=== PATIENT | female | born 1985 | race American Indian/Alaskan Native ===

== ENCOUNTER 2017-09-24 22:02 | Emergency (ER) | payer BC, OTHER ==
[2017-09-24 22:24] VITALS: BMI 35.5
[2017-09-24 22:50] VITALS: TEMP 98.4
[2017-09-24 22:54] LABS: SQUAMOUS EPITHIAL 6 /hpf (0-5); URINE BACTERIA RARE (<OCC); URINE BILIRUBIN NEGATIVE (NEGATIVE); URINE BLOOD NEGATIVE (NEGATIVE); URINE CLARITY SLIGHTY-CLOUDY (Clear); URINE COLOR YELLOW (YELLOW); URINE GLUCOSE (UA) NEG (Normal); URINE LEUKOCYTE ESTERASE NEG Leu/uL (Negative); URINE PROTEIN NEGATIVE (NEGATIVE); URINE UROBILINOGEN 0.2-1.0 mg/dL (0.2-1.0)
--- NOTE | 2017-09-24 23:45 | US ---
Clinical history: Pelvic pain; Additional info: , abdo pain Gender: female Age: 32 years Exam: US TRANSVAGINAL NON-OB Comparison: Cervical length was measured at 3.9-4.4 CM.
[2017-09-24 23:50] LABS: SPECIMEN COMMENT CLOUDY
--- NOTE | 2017-09-25 09:04 | OBHP ---
Datetime: 09/24/2017 22:31 IP Adm Impression: , intrauterine ; No Active Labor; Intact Membranes IP Admit Plan: Observation/Evaluation Admit Comment, IP Provider: This is 32 y/o F, , IUP@ 26.5, ARIEL 12/26 and GEO C/S on 12/19 comes to the [facility] c/o lower back and abdominal pain. Pain started at 8 pm in the evening all the sudden, come s and goes, crampy in nature, 6-7/10 severity associated with nausea and dizziness. last tylenol at 4 pm as per patient. No sexual intercourse in last 3 days Denies any LOF/BV/CTX, reports good FM Denies chest pain, SOB or urinary symptoms at this time PNC: Dr. Ryder OBhx: , 2 x misscar, 1 C/S due to abnormal FHT, 2x ABS PMH: Scoliosis PSH: Allg: NKDA Meds: PNV + Tylenol PRN SH: Denies FH: Denies VS: Reviewed PE: as above A/P: 32 y/o F, , IUP@ 26.5, ARIEL 12/26 and GEO C/S on 12/19 comes to the [facility] c/o lower back and abdominal pain - Pelvic exam - UA - Tylenol - Monitor VS/NST -FFN - Reevaluation - Possible u/s Case discussed with Dr. Johnson --- Mario Leavitt, PGY-1 UA: negative T/V u/S: Cervical length 4.1 FFN: negative Reevaluation: Pain has improved Agrees with dischsrge plan Appt OB next weeks Discussed with Dr. Johnson --- Mario Leavitt, PGY-1 OB Hospitalist on-call Pt star barba examined with PGY1...workup UA, FFn neg; CLM 4cm. She felt better after Tylenol. Lasha chu discahrge home; follow up as scheduled MAHNDO Extremities - PN: Normal Back - PN: Normal Lungs - PN: Normal Heart - PN: Normal Thyroid - PN: Normal Neurologic - PN: Normal HEENT - PN: Normal General - PN: Normal FHR - Baseline A Provider: 130 Membranes, Provider: Intact Comments, ACOG Physical Exam: mild acute distressed due to pain PE: supera pubic tenderness and mild lower back tenderness Cervical length 4.1 on TV U/S PE: wnl, closed cervix, high and thick FFn negative (Annotations: Data stored by CPN on behalf of user) Pool Provider: Negative IP Hx Assessment: The History has been Reviewed and is Current EGA AdmitDate IP: 26.5 Vital Signs Provider: Reviewed; Within Normal Limits IP Chief Complaint: Maternal discomfort NICHD Variability Prov Fetus A: Moderate 6-25bpm NICHD Accel Fetus A IP Provider: 10X10 FHR Category Provider Fetus A: Category I NICHD Decel Fetus A IP Provider: None Dilatation, Provider: close
--- NOTE | 2017-09-25 09:06 | OBDCSUM ---
Datetime: 09/24/2017 23:56 Discharged to, Provider: Home Follow up at, Provider: Domenico Disch Instr Activity: Normal activity Disch Instr Diet: Regular Discharge Instructions, Provider: Routine instructions given Discharge Diagnosis, Provider: False Labor - Undelivered Discharge Time: 09/24/2017 23:56 Follow up in weeks, Provider: 10/14/17 @ 9:15 am as scheduled Disch Referrals: None Contraception discussed, Prov: Yes Disch Activity Restrictions: No sexual activity; Nothing in vagina - [place], tampons, douche
[2017-09-25 19:02] VITALS: BP 134/76; PULSE 88; RESP 21; O2SAT 100
== END 2017-09-25 00:10 | disposition home or self-care (01) ==
LOC: H.EROB2 22:02
DX: O26.92 Pregnancy related conditions, unspecified, second trimester (principal); M54.5 Low back pain; R10.2 Pelvic and perineal pain; Z3A.27 27 weeks gestation of pregnancy

== ENCOUNTER 2017-10-30 12:42 | Emergency (ER) | payer BC, OTHER ==
[2017-10-30 13:05] VITALS: BMI 37.1
[2017-10-30] MEDS ORDERED: Lactated Ringer's 500 ML IV SCH (13:45)
[2017-10-30 13:57] LABS: BASO % 0.4 % (0.0-2.0); EOS % 0.2 % (0.0-4.0); HEMOGLOBIN 13.8 g/dL (12.0-16.0); LYMPH # 0.8 K/uL (1.0-4.3); LYMPH % 10.9 % (20.0-40.0); MEAN CELL VOLUME 91.2 fl (81.0-99.0); MEAN CORPUSCULAR HEMOGLOBIN 30.2 pg (27.0-31.0); MEAN CORPUSCULAR HGB CONC 33.1 g/dL (33.0-37.0); MEAN PLATELET VOLUME 9.3 fl (7.2-11.7); MONO # 0.4 K/uL (0.0-0.8); MONO % 5.7 % (0.0-10.0); NEUT # 5.9 K/uL (1.8-7.0); NEUT % 82.8 % (50.0-75.0); NRBC % 0.2 % (0.0-0.0); RBC 4.57 Mil/uL (3.80-5.20); RED CELL DISTRIBUTION WIDTH 13.9 % (11.5-14.5); WHITE BLOOD COUNT 7.1 K/uL (4.8-10.8)
[2017-10-30] MEDS ORDERED: Lactated Ringer's 1,000 ML IV SCH (14:01)
[2017-10-30 14:06] LABS: ALBUMIN 3.9 g/dL (3.5-5.0); CALCIUM 9.1 mg/dL (8.4-10.2); GFR AFRICAN-AMERICAN > 60; GFR NON-AFRICAN AMERICAN > 60
[2017-10-30 14:13] LABS: SQUAMOUS EPITHIAL 1 /hpf (0-5); URINE AMORPHOUS SEDIMENT RARE /ul (<OCC); URINE BILIRUBIN NEGATIVE (NEGATIVE); URINE BLOOD MODERATE (NEGATIVE); URINE CLARITY CLOUDY (Clear); URINE COLOR YELLOW (YELLOW); URINE GLUCOSE (UA) NEG (Normal); URINE LEUKOCYTE ESTERASE NEG Leu/uL (Negative); URINE PROTEIN 30 mg/dL (NEGATIVE)
[2017-10-30 14:14] LABS: ALT/SGPT 39 U/L (9-52); AST/SGOT 33 U/L (14-36); BLOOD UREA NITROGEN 10 mg/dl (7-17)
--- NOTE | 2017-10-30 17:53 | OBHP ---
Datetime: 10/30/2017 13:36 IP Adm Impression: , intrauterine ; No Active Labor IP Admit Plan: Observation/Evaluation; Discharge home Admit Comment, IP Provider: 32 y/o F, , IUP@ 36.6wks ARIEL 12/26 and GEO C/S on 12/19 comes to the [facility] c/o lower back and abdominal pain with vomiting that started last night around 8 pm intermittent, crampy in nature, 6-7/10 severity associated with nausea, vomiting and weakness. Last vomit when arr ived to [facility]. Denies any LOF/BV/CTX, reports good FM Denies chest pain, SOB or headaches. PNC: Dr. Ryder OBhx: , 2 x misscar, 1 C/S due to abnormal FHT, 2x ABS PMH: Scoliosis PSH: Allg: NKDA Meds: PNV + Tylenol PRN SH: Denies FH: Denies VS: Reviewed PE: as above Cervix closed A/P: 32 y/o F, IUP@ 36.6, ARIEL 12/26 c/o lower back and abdominal pain associated vomiting x1 d ay. - Observation - Pelvic exam - UA - cbc, cmp - Zofran 4 mg once - IV fluids - Monitor VS - Reevaluation Case discussed with Dr Stevens. Trey PGY-1 Reeval time 14:23 Patient feels better CBC and CMP wnl. UA negative for UTI. - Start PO challenge with ice chips. 1500: patient feels better, tolerating well PO. Dicharge home. f/u with primary OB. ER precautions discussed. Trey PGY. Attending Note: Patient was seen and examined at her bedside with me and I agree with the above. Pelvic Type - PN: Adequate Extremities - PN: Normal Abdomen - PN: Normal Back - PN: Normal Breast - PN: Not Done Lungs - PN: Normal Heart - PN: Normal Thyroid - PN: Not Done Neurologic - PN: Normal HEENT - PN: Normal General - PN: Normal FHR - Baseline A Provider: 150 Membranes, Provider: Intact Contraction Comments Provider: none EGA AdmitDate IP: 31.6 Vital Signs Provider: Reviewed IP Chief Complaint: Maternal discomfort; Other NICHD Variability Prov Fetus A: Moderate 6-25bpm NICHD Accel Fetus A IP Provider: 15X15 FHR Category Provider Fetus A: Category I NICHD Decel Fetus A IP Provider: None Dilatation, Provider: 0 Effacement, Provider: thick Station, Provider: high Genitourinary Exam: Not Done DTRs - PN: Not Done
[2017-10-30 22:03] VITALS: BP 138/65; PULSE 106; TEMP 99; O2SAT 98
== END 2017-10-30 16:55 | disposition home or self-care (01) ==
LOC: H.EROB2 12:42
DX: O21.0 Mild hyperemesis gravidarum (principal); O26.93 Pregnancy related conditions, unspecified, third trimester; M54.5 Low back pain; Z3A.36 36 weeks gestation of pregnancy; Z87.59 Personal history of other complications of pregnancy, childbirth and the puerperium; R10.2 Pelvic and perineal pain
CPT/HCPCS: 80053; 81003; 85025; 96374; 99283; J2405; J7120

== ENCOUNTER 2017-12-09 19:42 | Emergency (ER) | payer BC, OTHER ==
[2017-12-09 20:36] VITALS: BMI 38.7
[2017-12-09] MEDS: Lactated Ringer's 1,000 ML IV SCH ×2 (20:53→21:30)
[2017-12-09 21:04] LABS: SQUAMOUS EPITHIAL 11 /hpf (0-5); URINE BACTERIA RARE (<OCC); URINE BILIRUBIN NEGATIVE (NEGATIVE); URINE BLOOD MODERATE (NEGATIVE); URINE CALCIUM OXALATE CRYSTALS FEW /hpf (<OCC); URINE CLARITY CLOUDY (Clear); URINE COLOR YELLOW (YELLOW); URINE GLUCOSE (UA) NEG (Normal); URINE LEUKOCYTE ESTERASE NEG Leu/uL (Negative); URINE PROTEIN NEGATIVE (NEGATIVE); URINE UROBILINOGEN 0.2-1.0 mg/dL (0.2-1.0)
--- NOTE | 2017-12-09 22:52 | OBHP ---
Datetime: 12/09/2017 20:13 IP Adm Impression: Term, intrauterine Admit Comment, IP Provider: LMP: could not recall PNP: Dr. Ryder 32 y/o at 37 wks _ 5 days with ARIEL 12/26/17 is c/o suprapubic pain since 5pm. She reports p ain is cramping _ sharp, 8-9/10 in nature and has been getting worse. She has felt movement wit hin past 5 minutes, _ denied vaginal bleeding, loss of fluid or any recent sexual activity. Patient has scheduled for 12/20/2017. OBGYNhx: 1 , 2006, M 2 scheduled abortions 2 miscarriages ( patient couldn't recall dates) PMH: none Sochx: no tobacco, EtOH or drugs Surghx: none Allergies: none ROS: denies dizziness, headache, blurred vision, cp, sob,n/v/d PE: Gen: obese female, flinching Cardio: s1s2 ausculated Resp: clear b/l Abd: BS+ Vag: cervix closed, thick Ext: calves nontender A/P: 32 y/o at 37 wks _ 5 days with ARIEL 12/26/17 1. Patient placed FHR monitoring ; 2.Will do UA, IV hydration with 1L of LR (2 bags), _ observe. Case discussed with Dr. Britni Ramirez PGY-1 Addendum: Patient observed at OB ED for approximately 3 hours. Patient reexamined and no cervical change. No evidence of labor at this time. heart tracing reactive. Discussed options with patient, patien t discharged home with labor precautions. Patient scheduled for repeat in 3 days. Patient w ill return to and delivery for repeat as scheduled. Britni Extremities - PN: Normal Lungs - PN: Normal Heart - PN: Normal General - PN: Normal Pool Provider: Negative EGA AdmitDate IP: 37.4 Vital Signs Provider: Reviewed IP Chief Complaint: Maternal discomfort (Annotations: Data stored by CPN on behalf of user) Dilatation, Provider: 0 Effacement, Provider: 0
[2017-12-10 08:27] VITALS: BP 142/80; PULSE 71; RESP 20; TEMP 98.9; O2SAT 99
== END 2017-12-09 22:45 | disposition home or self-care (01) ==
LOC: H.EROB2 19:42
DX: O26.93 Pregnancy related conditions, unspecified, third trimester (principal); R10.2 Pelvic and perineal pain; Z3A.37 37 weeks gestation of pregnancy
CPT/HCPCS: 81003; 96360; 96361; 99283; J7120

== ENCOUNTER 2017-12-19 15:13 | Inpatient (IN) | payer OTHER ==
[2017-12-19 15:45] VITALS: BMI 37.1
[2017-12-19 16:15] LABS: SQUAMOUS EPITHIAL 10 /hpf (0-5); URINE BACTERIA RARE (<OCC); URINE BILIRUBIN NEGATIVE (NEGATIVE); URINE BLOOD NEGATIVE (NEGATIVE); URINE CALCIUM OXALATE CRYSTALS OCC /hpf (<OCC); URINE CLARITY CLOUDY (Clear); URINE COLOR YELLOW (YELLOW); URINE GLUCOSE (UA) 150 mg/dL (Normal); URINE LEUKOCYTE ESTERASE NEG Leu/uL (Negative); URINE PROTEIN 30 mg/dL (NEGATIVE); URINE UROBILINOGEN 0.2-1.0 mg/dL (0.2-1.0)
[2017-12-19] MEDS ORDERED: Lactated Ringer's 1,000 ML IV ONE (16:53)
[2017-12-19] MEDS ORDERED: Lactated Ringer's 1,000 ML IV SCH ×2 (17:00→18:30)
[2017-12-19] MEDS ORDERED: Magnesium Sul 40GM/1L SW 40 GM/1,000 ML ML IV ONE ×3 (17:01→21:46)
[2017-12-19] MEDS ORDERED: Magnesium Sulfate 4 gm/100 ml 4 GM/100 ML BAG IV ONE (17:01)
--- NOTE | 2017-12-19 17:04 | OBHP ---
Datetime: 12/19/2017 17:04 IP Adm Impression: Term, intrauterine ; No Active Labor; Intact Membranes IP Admit Plan: Admit to unit; Initiate Section protocol Abdomen - PN: Normal Back - PN: Normal Lungs - PN: Normal Heart - PN: Normal Thyroid - PN: Normal Neurologic - PN: Normal HEENT - PN: Normal General - PN: Normal IP Hx Assessment: The History has been Reviewed and is Current EGA AdmitDate IP: 39.0 IP Chief Complaint: Signs/Symptoms Gestational HTN Datetime: 12/19/2017 16:15 Admit Comment, IP Provider: She feel +FM now Datetime: 12/19/2017 15:30 Extremities - PN: Normal Presentation-Admit: Vertex Vital Signs Provider: Reviewed; Within Normal Limits FHR Category Provider Fetus A: Category I NICHD Decel Fetus A IP Provider: None Genitourinary Exam: Normal DTRs - PN: Normal
[2017-12-19] MEDS ORDERED: ceFAZolin IV 2 gm in Dextrose 2 GM/50 ML BAG IVPB ONE (17:07)
[2017-12-19] MEDS ORDERED: Oxytocin 30 units/LR 500ML 30 U/500 ML BAG IV ONE (17:08)
--- NOTE | 2017-12-19 17:09 | OBADHP ---
Datetime: 12/19/2017 17:04 Admit Comment, IP Provider: 32yo IUP at 39w c/o decreased FM. No CTX; no VB; No SROM No CARRANZA; no visual dist While in [facility] she c/o epigastric pain. She's used meds for gatritis for relief...BP conintuies to be elevated 150'/100's POBGYNH: TOP x3; Spont ab x 2; C/S x 1 PMH: denies PSH LEEP PSOH + smoker - stopped when she was + preg; no ETOH; no drugs A: IUP at 39w C/S x 1 decliend Elevated BP PLAN:Detailed discussion with patinet about condition and its risks/complications. She understands ...Will admit; IV fluids; prep for C/S...start MgSO if BP still elevated Informed consent obtained Extremities - PN: Normal Abdomen - PN: Normal Back - PN: Normal Lungs - PN: Normal Heart - PN: Normal Thyroid - PN: Normal Neurologic - PN: Normal HEENT - PN: Normal General - PN: Normal FHR - Baseline A Provider: 130 Contraction Comments Provider: none IP Hx Assessment: The History has been Reviewed and is Current IP Chief Complaint: Signs/Symptoms Gestational HTN NICHD Variability Prov Fetus A: Moderate 6-25bpm NICHD Accel Fetus A IP Provider: 15X15 FHR Category Provider Fetus A: Category I NICHD Decel Fetus A IP Provider: None Dilatation, Provider: 0 Genitourinary Exam: Normal EGA AdmitDate IP: 39.0 IP Adm Impression: Term, intrauterine ; No Active Labor; Intact Membranes IP Admit Plan: Admit to unit; Initiate Section protocol Datetime: 12/19/2017 15:30 Presentation-Admit: Vertex Vital Signs Provider: Reviewed; Within Normal Limits DTRs - PN: Normal Datetime: 12/09/2017 20:13 Pool Provider: Negative Effacement, Provider: 0 Datetime: 10/30/2017 13:36 Pelvic Type - PN: Adequate Breast - PN: Not Done Membranes, Provider: Intact Station, Provider: high Datetime: 09/24/2017 22:31 Comments, ACOG Physical Exam: mild acute distressed due to pain PE: supera pubic tenderness and mild lower back tenderness Cervical length 4.1 on TV U/S PE: wnl, closed cervix, high and thick FFn negative (Annotations: Data stored by CPN on behalf of user)
[2017-12-19] MEDS ORDERED: ePHEDrine 50 mg/ml Inj ONE (18:05)
[2017-12-19] MEDS ORDERED: Morphine 5 mg/10 ml preservative-free Inj(Duramorph) ONE (18:05)
[2017-12-19] MEDS ORDERED: Phenylephrine 10 mg/ml Inj ONE (18:05)
[2017-12-19 18:11] LABS: MEAN CELL VOLUME 91.3 fl (81.0-99.0); MEAN CORPUSCULAR HEMOGLOBIN 30.3 pg (27.0-31.0); MEAN CORPUSCULAR HGB CONC 33.2 g/dL (33.0-37.0); RBC 4.29 Mil/uL (3.80-5.20); RED CELL DISTRIBUTION WIDTH 14.4 % (11.5-14.5); WHITE BLOOD COUNT 8.6 K/uL (4.8-10.8)
[2017-12-19 18:20] LABS: ALB/GLOB RATIO 1.1 (1.0-2.1); ALBUMIN 3.6 g/dL (3.5-5.0); ALT/SGPT 33 U/L (9-52); AST/SGOT 24 U/L (14-36); BLOOD UREA NITROGEN 10 mg/dl (7-17); CALCIUM 9.4 mg/dL (8.4-10.2); GFR AFRICAN-AMERICAN > 60; GFR NON-AFRICAN AMERICAN > 60; URIC ACID 3.9 mg/Dl (2.2-7.5)
[2017-12-19] MEDS ORDERED: Cellulose Hemostat 2X3 Sheet ONE (20:42)
[2017-12-19] MEDS ORDERED: Propofol 10 mg/ml Inj (20 ML) ONE ×2 (21:10→21:23)
[2017-12-19] MEDS ORDERED: Absorbable Gelatin Sponge Size 12-7 ONE ×2 (21:15→21:18)
[2017-12-19] MEDS: HYDROmorphone 0.5 mg/0.5 ml ISec IVP PRN ×2 (22:30→23:45)
[2017-12-20] MEDS: HYDROmorphone 0.5 mg/0.5 ml ISec IVP PRN ×2 (01:07→04:10)
[2017-12-20] MEDS: DiphenhydrAMINE 50 mg/ml Inj IVP PRN ×3 (02:26→19:57)
[2017-12-20] MEDS ORDERED: Lactated Ringer's 1,000 ML IV SCH (04:15)
[2017-12-20] MEDS ORDERED: Bisacodyl 5mg EC Tab PO PRN ×2 (04:15→20:37)
[2017-12-20] MEDS ORDERED: Oxycodone/Acetaminophen 5/325 mg Tab PO PRN (04:15)
[2017-12-20 05:18] LABS: BASO % 0.1 % (0.0-2.0); EOS % 0.1 % (0.0-4.0); HEMOGLOBIN 11.5 g/dL (12.0-16.0); LYMPH % 15.6 % (20.0-40.0); MEAN CELL VOLUME 90.7 fl (81.0-99.0); MEAN CORPUSCULAR HEMOGLOBIN 30.2 pg (27.0-31.0); MEAN CORPUSCULAR HGB CONC 33.2 g/dL (33.0-37.0); MEAN PLATELET VOLUME 10.1 fl (7.2-11.7); MONO # 0.8 K/uL (0.0-0.8); MONO % 6.6 % (0.0-10.0); NEUT # 9.9 K/uL (1.8-7.0); NEUT % 77.6 % (50.0-75.0); RBC 3.82 Mil/uL (3.80-5.20); RED CELL DISTRIBUTION WIDTH 14.5 % (11.5-14.5); WHITE BLOOD COUNT 12.8 K/uL (4.8-10.8)
[2017-12-20 05:28] LABS: ALB/GLOB RATIO 1.1 (1.0-2.1); ALBUMIN 2.9 g/dL (3.5-5.0); ALT/SGPT 37 U/L (9-52); AST/SGOT 27 U/L (14-36); BLOOD UREA NITROGEN 7 mg/dl (7-17); CALCIUM 7.5 mg/dL (8.4-10.2); GFR AFRICAN-AMERICAN > 60; GFR NON-AFRICAN AMERICAN > 60
[2017-12-20 05:36] LABS: PARTIAL THROMBOPLASTIN TIME 25.6 Seconds (25.6-37.1); PROTHROMBIN TIME 10.9 Seconds (9.8-13.1)
[2017-12-20] MEDS ORDERED: Multivitamin With Minerals Tab PO SCH (09:00)
[2017-12-20] MEDS: Oxycodone/Acetaminophen 5/325 mg Tab PO PRN ×3 (09:10→23:48)
[2017-12-20] MEDS: Simethicone 80 mg Chewtab PO SCH ×3 (11:00→21:45)
[2017-12-20 11:17] LABS: BASO % 0.1 % (0.0-2.0); EOS % 0.1 % (0.0-4.0); HEMOGLOBIN 11.3 g/dL (12.0-16.0); LYMPH # 1.8 K/uL (1.0-4.3); LYMPH % 16.5 % (20.0-40.0); MEAN CORPUSCULAR HEMOGLOBIN 30.8 pg (27.0-31.0); MEAN CORPUSCULAR HGB CONC 34.2 g/dL (33.0-37.0); MONO # 0.8 K/uL (0.0-0.8); MONO % 7.3 % (0.0-10.0); NEUT # 8.2 K/uL (1.8-7.0); RBC 3.65 Mil/uL (3.80-5.20); RED CELL DISTRIBUTION WIDTH 14.5 % (11.5-14.5); WHITE BLOOD COUNT 10.8 K/uL (4.8-10.8)
[2017-12-20 11:37] LABS: INR 0.9 (0.9-1.2); PARTIAL THROMBOPLASTIN TIME 27.3 Seconds (25.6-37.1); PROTHROMBIN TIME 10.4 Seconds (9.8-13.1)
[2017-12-20 11:39] LABS: ALBUMIN 2.9 g/dL (3.5-5.0); ALT/SGPT 31 U/L (9-52); AST/SGOT 33 U/L (14-36); BLOOD UREA NITROGEN 6 mg/dl (7-17); GFR AFRICAN-AMERICAN > 60; GFR NON-AFRICAN AMERICAN > 60
[2017-12-20] MEDS: Lactated Ringer's 1,000 ML IV SCH ×2 (13:00)
[2017-12-20 17:35] VITALS: RESP 18
--- NOTE | 2017-12-20 17:59 | OBPPN ---
Datetime: 12/20/2017 17:50 PP Pain Prov: Within normal limits PP Nausea Prov: Denies PP Flatus Prov: Yes PP Breasts Prov: Normal PP Heart Prov: Normal PP Lungs Prov: Normal PP Abdomen/Uterus Prov: Normal PP Lochia Prov: Normal PP Vulva/Perineum Prov: Normal PP CVA Tenderness Prov: Normal PP Extremities Prov: Normal PP Comments Phys Exam Prov: fundus firm under umbilicus Incision clean/dry/intact PP Progress Note Prov: Patient evaluated, denied CARRANZA, blurry vision, no N/V, tolerated PO diet, abdom inal pain tolerable with meds, +westfall draining appropriate urine, no flatus A/P POD #1 1. Patient was continued on MgSO4 for pre-eclamptic precautions. Pt's BPs continued to be 150-170/ 90-100 at highest. Discussed with patient would give Labetalol 200mg PO, starting dose around 11am. Bps have ranged 110-130s/50-60s. Pt continues to deny SOB, CARRANZA, blurred vision, no N/V. CBC/CMP nml. U rine output adequate. 2. MgSO4 to stop this evening. If BP continues to be over 140/90, will consider continuing Labetal ol 200 mg PO BID 3. Reg diet 4. Continue all other orders Vital Signs Provider PP: Reviewed; Within Normal Limits
[2017-12-20] MEDS ORDERED: Oxycodone/Acetaminophen 5/325 mg Tab PO ONE (19:47)
[2017-12-21] MEDS: Simethicone 80 mg Chewtab PO SCH ×4 (04:04→16:54)
[2017-12-21] MEDS: DiphenhydrAMINE 50 mg/ml Inj IVP PRN ×2 (04:16→09:33)
[2017-12-21] MEDS: Oxycodone/Acetaminophen 5/325 mg Tab PO PRN ×3 (06:53→16:53)
[2017-12-21 06:57] LABS: HEMOGLOBIN 9.4 g/dL (12.0-16.0); MEAN CORPUSCULAR HEMOGLOBIN 31.1 pg (27.0-31.0); MEAN CORPUSCULAR HGB CONC 34.2 g/dL (33.0-37.0); RBC 3.04 Mil/uL (3.80-5.20); RED CELL DISTRIBUTION WIDTH 14.7 % (11.5-14.5); WHITE BLOOD COUNT 8.3 K/uL (4.8-10.8)
[2017-12-21] MEDS ORDERED: Multivitamin With Minerals Tab PO SCH (09:00)
--- NOTE | 2017-12-21 18:05 | OBPPN ---
Datetime: 12/21/2017 14:04 PP Pain Prov: Within normal limits PP Nausea Prov: Denies PP Flatus Prov: Yes PP BM Prov: No PP Breasts Prov: Not Done PP Heart Prov: Normal PP Lungs Prov: Normal PP Abdomen/Uterus Prov: Normal PP Lochia Prov: Normal PP Vulva/Perineum Prov: Normal PP CVA Tenderness Prov: Normal PP Extremities Prov: Normal PP C/S Incision Prov: Normal PP Impression Prov: Normal progression PP Plan Prov: Continue present management PP Progress Note Prov: H/H 02/24 A; S/P C/S day 2 Anemia - asymptomatic PLAN: cont post op care Anticiapte discharge in AM Vital Signs Provider PP: Reviewed; Within Normal Limits
[2017-12-21] MEDS ORDERED: Lactated Ringer's 1,000 ML IV SCH (18:45)
[2017-12-21] MEDS ORDERED: Labetalol 5 mg/ml Inj 20ML IVP PRN (19:11)
--- NOTE | 2017-12-21 19:18 | OBPPN ---
Datetime: 12/21/2017 18:45 PP Pain Prov: Abnormal PP Nausea Prov: Present PP Flatus Prov: No PP BM Prov: No (Annotations: Data stored by CPN on behalf of user) PP Abdomen/Uterus Prov: Abnormal PP Comments Phys Exam Prov: In somne distress due to pain; started to have pain 30m ago after waking up PP Impression Other Prov: Abd pain / no bowel sounds PP Progress Note Prov: NPO / IVF Surgery consult called Vital Signs Provider PP: Reviewed; Within Normal Limits
[2017-12-21] MEDS: HYDROmorphone 0.5 mg/0.5 ml ISec IVP PRN (19:25)
--- NOTE | 2017-12-21 19:52 | CP.PCM.CON ---
History of Present Illness - History of Present Illness History of Present Illness: General surgery consult for Dr. Valentina Prince, PGY-2 Pt S & E at bedside at 1915 32F w/PMH sig for recent (12/19/17) with bleeding from top of uterus treated with surgicel & gelfoam,consulted for abdominal pain x 1 day. Pt reports onset of lower quadrants abdominal pain started at 11am on day of evaluation, radiates diffusely, severe. Admits to multiple episodes of nausea & emesis >10x (~1L, nb,nb), abdominal bloating, associated dizziness, sore throat after vomiting. States that she feels like she is full of gas, has been taking Colace, prune juice, Sennakot without relief. Is voiding. Denies BM or flatus since surgery, hematemesis, hemturia, chest pain, SOB, palpitations, ever having episodes of similar, other complaints. PMH: Gestational HTN, Scoliosis, deviated sputum PSH: x 2 All: NKDA SH: Denies ETOH, tobacco or illicit drug use; 6th - 2 live births, 2 abortions, 2 miscarriages FH: Non contributory Review of Systems - Review of Systems All systems: reviewed and no additional remarkable complaints except - Constitutional Constitutional: absent: Chills, Fever, Headache - EENT Ears: Dizziness Nose/Mouth/Throat: Sore Throat - Cardiovascular Cardiovascular: absent: Chest Pain - Respiratory Respiratory: absent: Cough - Gastrointestinal Gastrointestinal: Abdominal Pain, Bloating, Change in Bowel Habits, Constipation , Nausea, Vomiting. absent: Excessive Flatus, Hematemesis, Hematochezia - Genitourinary Genitourinary: absent: Change in Urinary Stream, Flank Pain, Hematuria - Musculoskeletal Musculoskeletal: Back Pain (chronic). absent: Numbness, Tingling - Integumentary Integumentary: absent: Rash - Neurological Neurological: Dizziness Past Patient History - Infectious Disease Hx of Infectious Diseases: None - Tetanus Immunizations Tetanus Immunization: Up to Date - Past Medical History & Family History Past Medical History?: Yes - Past Social History Smoking Status: Never Smoked - CARDIAC Hx Cardiac Disorders: No - PULMONARY Hx Respiratory Disorders: No - NEUROLOGICAL Hx Neurological Disorder: No - HEENT Hx HEENT Problems: Yes Other/Comment: seasonal allergies - RENAL Hx Chronic Kidney Disease: No - ENDOCRINE/METABOLIC Hx Endocrine Disorders: No - HEMATOLOGICAL/ONCOLOGICAL Hx Blood Disorders: No - INTEGUMENTARY Hx Dermatological Problems: No - MUSCULOSKELETAL/RHEUMATOLOGICAL Hx Musculoskeletal Disorders: Yes Other/Comment: Scoliosis - GASTROINTESTINAL Hx Gastrointestinal Disorders: No - GENITOURINARY/GYNECOLOGICAL Hx Genitourinary Disorders: No - PSYCHIATRIC Hx Psychophysiologic Disorder: No Hx Substance Use: No - SURGICAL HISTORY Hx Section: Yes - ANESTHESIA Hx Anesthesia: Yes Hx Anesthesia Reactions: No Hx Malignant Hyperthermia: No Meds Allergies/Adverse Reactions: Allergies Allergy/AdvReac Type Severity Reaction Status Date / Time No Known Allergies Allergy Verified 08/28/17 03:39 - Medications Medications: Current Medications Hydromorphone HCl (Dilaudid) 0.5 mg IVP Q3H PRN PRN Reason: Pain, severe (8-10) Potassium Chloride/Sodium Chloride (Potassium Chl 20 Meq In Ns) 1,000 mls @ 150 mls/hr IV .Q6H40M [facility] Stop: 12/22/17 19:09 Labetalol HCl (Trandate) 20 mg IVP Q6H PRN PRN Reason: Other Ondansetron HCl (Zofran Inj) 4 mg IVP Q4 PRN PRN Reason: Nausea/Vomiting Last Admin: 12/21/17 19:04 Dose: 4 mg Pantoprazole Sodium (Protonix Inj) 40 mg IVP DAILY [facility] Physical Exam - Constitutional Appears: Non-toxic, No Acute Distress, Other (uncomfortable looking, writhing in bed) - Head Exam Head Exam: ATRAUMATIC, NORMAL INSPECTION, NORMOCEPHALIC - Eye Exam Eye Exam: EOMI, Normal appearance - ENT Exam ENT Exam: Mucous Membranes Moist, Normal Exam - Neck Exam Neck exam: Positive for: Full Rom, Normal Inspection - Respiratory Exam Respiratory Exam: Clear to Auscultation Bilateral, NORMAL BREATHING PATTERN. absent: Rales, Rhonchi, Wheezes, Respiratory Distress - Cardiovascular Exam Cardiovascular Exam: Tachycardia, +S1, +S2 - GI/Abdominal Exam GI & Abdominal Exam: Distended, Hyperactive Bowel Sounds, Soft, Tenderness ( lower quadrants). absent: Firm, Guarding, Rebound, Rigid Additional comments: pfannistel incision- clean & dry, no fluctuance or erythema or drainage noted, allie in place - Rectal Exam Rectal Exam: NORMAL INSPECTION (no stool in rectal vault). absent: Black Stool , Bloody Stool, Hemorrhoids, Fecal Impaction - Extremities Exam Extremities exam: Positive for: normal inspection - Back Exam Back exam: NORMAL INSPECTION - Neurological Exam Neurological exam: Alert, CN II-XII Intact, Oriented x3 - Psychiatric Exam Psychiatric exam: Normal Affect, Normal Mood - Skin Skin Exam: Dry, Intact, Normal Color, Warm Results - Vital Signs Recent Vital Signs: Last Vital Signs Temp 98.9 F 12/20/17 17:17 Pulse 103 H 12/20/17 17:17 Resp 18 12/20/17 17:17 BP 134/88 12/20/17 17:17 Pulse Ox - Labs Result Diagrams: 12/21/17 06:00 12/20/17 11:00 Labs: Laboratory Results - last 24 hr 12/21/17 06:00 WBC 8.3 RBC 3.04 L Hgb 9.4 L Hct 27.6 L MCV 91.0 MCH 31.1 H MCHC 34.2 RDW 14.7 H Plt Count 176 Assessment & Plan - Assessment and Plan (Free Text) Assessment: 32F w/PMH sig for POD#2 now with abdominal pain x 1 day, no bowel function Plan: NPO IVF Pain control Anti-emetic PRN BP control Serial ab exams OOBTC Strict I & O's Encourage IS use FU Abdominal x-ray Will consider CT ab tomorrow if pain continues JOSE attending Niki, PGY-2 - Date & Time Date: 12/21/17 Time: 19:53
[2017-12-21] MEDS: Potassium Chl 20 mEq in NS 1,000 ML IV SCH (20:50)
[2017-12-22] MEDS: Potassium Chl 20 mEq in NS 1,000 ML IV SCH ×3 (01:55→16:34)
[2017-12-22] MEDS ORDERED: Lidocaine 2% GEL TOP ONE (03:10)
[2017-12-22] MEDS ORDERED: Lidocaine 2% Jelly (Uro-Jet) TOP ONE (03:15)
[2017-12-22] MEDS ORDERED: Benzocaine/Menthol (Cepacol) Lozenge PO PRN (03:39)
--- NOTE | 2017-12-22 07:13 | OBPPN ---
Datetime: 12/22/2017 06:45 PP Pain Prov: Abnormal PP Nausea Prov: Denies PP Flatus Prov: No PP BM Prov: No PP Heart Prov: Normal PP Lungs Prov: Normal PP Abdomen/Uterus Prov: Abnormal PP C/S Incision Prov: Normal PP Plan Prov: Continue present management PP Impression Other Prov: postop Ileus PP Progress Note Prov: OB Hospitalist on-call She was seen last night by general surgery. She had abd films done. Eventually, she had NG tube placed at 4am for abd pain. Today, In NAD NG tube in place Lungs CTA Abd no BS C/S site dry A: S/P C/S day 3 postop ileus Hyponatremia Hypertension PLAN: cont IV meds/followed by surgery Vital Signs Provider PP: Reviewed
--- NOTE | 2017-12-22 08:41 | OBDS ---
DELIVERY PERSONNEL Delivery Doctor: Penny Johnson DO [employer] Superintendent: Ember Schaffer RN Anesthesiologist: Dr. Zhang Resident: Vane Prince MD MATERNAL INFORMATION Delivery Anesthesia: Spinal Medications in Delivery: Pitocin 30u/500mL Estimated Blood Loss (ml): 1200 Placenta Cultured: No Maternal Complications: Hemorrhage Provider Comments: PreOp Dx: IUP 39w/previous C/Sx1/elevated BP PostOp Dx same;pelvic adhesions; uterine atony; fibroid uterus Procedure: Repeat C/S via vertical uterine incision - adhesions/fibroids Surgeon: Dr Johnson Asst: Dr Patton/dr Mckee/Dr Prince PGY2 Anesth:Dr Coyle Anesth: Spinal/general Findings: -pelvic adhesions/fibroid uterus/unable to visualize bladder -[facility] [place] presentation -Clear fluid -placenta delivered intact manually -uterine atony (given Hemobate IM and intrauterine / Cytotec rectally -Gelfoam and Surgicel placed -EBL 1200cc -She remained stable durign procedure - given general secondary to pain -all equipment spones and needles accounted for LABOR SUMMARY EDC: 12/26/2017 00:00 No. Babies in Womb: 1 Attempted: No Labor Anesthesia: None LABOR INFORMATION Reason for Induction: Not Applicable Oxytocin: N/A Group B Beta Strep: Negative Antibiotics # of Doses: 1 Antibiotics Time of Last Dose: ancef 2gm @2000 Steroids Given: None Reason Steroids Not Administered: Not Applicable MEMBRANES Membranes Rupture Method: Artificial Rupture of Membranes: 12/19/2017 20:25 Length of Rupture (hrs): 0.03 Amniotic Fluid Color: Clear Amniotic Fluid Amount: Moderate Amniotic Fluid Odor: Normal STAGES OF LABOR Stage 3 hrs: 0 Stage 3 min: 1 CSECTION DELIVERY Primary Indication: Repeat Elective Secondary Indication: Other Other Secondary Indication: PIH CSection Urgency: Non Elective CSection Incidence: Repeat Labor: No Labor Elective: Nonelective CSection Incision: Classical BABY A INFORMATION Delivery Date/Time: 12/19/2017 20:27 Method of Delivery: Born in Route : No : N/A Forceps: N/A Vacuum Extraction: N/A Shoulder Dystocia : No SHOULDER DYSTOCIA BABY A Delivery Date/Time: 12/19/2017 20:27 PRESENTATION/POSITION BABY A Presentation: Cephalic Cephalic Presentation: Vertex Breech Presentation: N/A PLACENTA INFORMATION BABY A Placenta Delivery Time : 12/19/2017 20:28 Placenta Method of Delivery: Manual Removal Placenta Status: Delivered SCORES BABY A Heart Rate 1 min: >100 bpm Resp Effort 1 min: Good Cry Reflex Irritability 1 min: Cough or Sneeze or Pulls Away Muscle Tone 1 min: Active Motion Color 1 min: Body [place], Extremities Blue Resuscitation Effort 1 min: Tactile Stimulation SCORE 1 MIN: 9 Heart Rate 5 min: >100 bpm Resp Effort 5 min: Good Cry Reflex Irritability 5 min: Cough or Sneeze or Pulls Away Muscle Tone 5 min: Active Motion Color 5 min: Body [place], Extremities Blue Resuscitation Effort 5 min: N/A SCORE 5 MIN: 9 INFORMATION BABY A Gestational Age at Delivery: 39.0 Gestational Status: Term Outcome : Liveborn Infant Condition : Stable Sex: Female WEIGHT/LENGTH BABY A Birthweight (gms): 3140 Weight (lb): 6 Weight (oz): 15 Infant Length Inches: 20.50 Length cms: 52.1 CORD INFORMATION BABY A No. Cord Vessels: 3 Nuchal Cord : N/A Cord Blood Taken: Yes Suction: Mouth; Nose
--- NOTE | 2017-12-22 08:41 | OBDS ---
DELIVERY PERSONNEL Delivery Doctor: Penny Johnson DO Coil Shaper: Ember Schaffer RN Anesthesiologist: Dr. Zhang Resident: Vane Prince MD MATERNAL INFORMATION Delivery Anesthesia: Spinal Medications in Delivery: Pitocin 30u/500mL Estimated Blood Loss (ml): 1200 Placenta Cultured: No Maternal Complications: Hemorrhage Provider Comments: PreOp Dx: IUP 39w/previous C/Sx1/elevated BP PostOp Dx same;pelvic adhesions; uterine atony; fibroid uterus Procedure: Repeat C/S via vertical uterine incision - adhesions/fibroids Surgeon: Dr Johnson Asst: Dr Patton/dr Mckee/Dr Prince PGY2 Anesth:Dr Cyole Anesth: Spinal/general Findings: -pelvic adhesions/fibroid uterus/unable to visualize bladder -live infant delivered from ceph presentation -Clear fluid -placenta delivered intact manually -uterine atony (given Hemobate IM and intrauterine / Cytotec rectally -Gelfoam and Surgicel placed -EBL 1200cc -She remained stable durign procedure - given general secondary to pain -all equipment spones and needles accounted for LABOR SUMMARY EDC: 12/26/2017 00:00 EDC: 12/26/2017 00:00 EDC: 12/26/2017 00:00 EDC: 12/26/2017 00:00 No. Babies in Womb: 1 Attempted: No Labor Anesthesia: None LABOR INFORMATION Reason for Induction: Not Applicable Oxytocin: N/A Group B Beta Strep: Negative Antibiotics # of Doses: 1 Antibiotics Time of Last Dose: ancef 2gm @2000 Steroids Given: None Reason Steroids Not Administered: Not Applicable MEMBRANES Membranes Rupture Method: Artificial Rupture of Membranes: 12/19/2017 20:25 Length of Rupture (hrs): 0.03 Amniotic Fluid Color: Clear Amniotic Fluid Amount: Moderate Amniotic Fluid Odor: Normal STAGES OF LABOR Stage 3 hrs: 0 Stage 3 min: 1 CSECTION DELIVERY Primary Indication: Repeat Elective Secondary Indication: Other Other Secondary Indication: PIH CSection Urgency: Non Elective CSection Incidence: Repeat Labor: No Labor Elective: Nonelective CSection Incision: Classical Uterine Closure: Double-layer closure BABY A INFORMATION Delivery Date/Time: 12/19/2017 20:27 Method of Delivery: Born in Route : No : N/A Forceps: N/A Vacuum Extraction: N/A Shoulder Dystocia : No SHOULDER DYSTOCIA BABY A Infant Delivery Date/Time: 12/19/2017 20:27 PRESENTATION/POSITION BABY A Presentation: Cephalic Cephalic Presentation: Vertex Breech Presentation: N/A PLACENTA INFORMATION BABY A Placenta Delivery Time : 12/19/2017 20:28 Placenta Method of Delivery: Manual Removal Placenta Status: Delivered SCORES BABY A Heart Rate 1 min: >100 bpm Resp Effort 1 min: Good Cry Reflex Irritability 1 min: Cough or Sneeze or Pulls Away Muscle Tone 1 min: Active Motion Color 1 min: Body Hart, Extremities Blue Resuscitation Effort 1 min: Tactile Stimulation SCORE 1 MIN: 9 Heart Rate 5 min: >100 bpm Resp Effort 5 min: Good Cry Reflex Irritability 5 min: Cough or Sneeze or Pulls Away Muscle Tone 5 min: Active Motion Color 5 min: Body Hart, Extremities Blue Resuscitation Effort 5 min: N/A SCORE 5 MIN: 9 INFANT INFORMATION BABY A Gestational Age at Delivery: 39.0 Gestational Status: Term Outcome : Liveborn Infant Condition : Stable Infant Sex: Female WEIGHT/LENGTH BABY A Infant Birthweight (gms): 3140 Weight (lb): 6 Infant Weight (oz): 15 Length Inches: 20.50 Infant Length cms: 52.1 CORD INFORMATION BABY A No. Cord Vessels: 3 Nuchal Cord : N/A Cord Blood Taken: Yes Suction: Mouth; Nose
--- NOTE | 2017-12-22 09:00 | RAD ---
Date of service: 12/21/2017 HISTORY: ab pain- upright abdomen flat plate COMPARISON: None available. FINDINGS: BOWEL: There is prominent fecal loading throughout the proximal and mid large-bowel and limited loading distally. Finding may indicate some degree of constipation. No definite bowel obstruction. Skin allie are noted inferiorly on the anterior wall the pelvis. BONES: Normal. OTHER FINDINGS: No definite acute pulmonary disease. Cardiac silhouette appears magnified by technique though limited intrinsic enlargement not completely excluded. IMPRESSION: Possible constipation. No definite bowel obstruction or gross free intra peritoneal gas. Postop changes are noted in the pelvis. No infiltrates bilaterally. Cardiac silhouette limited in evaluation. No pulmonary vascular congestion.
[2017-12-22] MEDS ORDERED: HYDROmorphone 0.5 mg/0.5 ml ISec IVP PRN (09:19)
--- NOTE | 2017-12-22 11:17 | CP.PCM.PN ---
Subjective - Date & Time of Evaluation Date of Evaluation: 12/22/17 Time of Evaluation: 11:13 - Subjective Subjective: General Surgery Dr. Barrios Pt S&E @bedside. Pt reports insomnia 2/2 pain. pain only controlled w/ dilaudid , refusing toradol. Pt reports pain diffuse, cramping sensation. Pt reports Amb yesterday after drinking prune juice. Pt denies N/V, F/C. (-)Flatus/BM. Objective - Vital Signs/Intake and Output Vital Signs (last 24 hours): Temp Pulse Resp BP Pulse Ox 98.9 F 103 H 18 134/88 12/20/17 17:17 12/20/17 17:17 12/20/17 17:17 12/20/17 17:17 - Medications Medications: Current Medications Acetaminophen (Tylenol 650 Mg Supp) 650 mg AK Q4 PRN PRN Reason: Pain, Mild (1-3) Benzocaine/Menthol (Cepacol Sore Throat) 1 lilian PO Q2 PRN PRN Reason: Sore Throat Hydromorphone HCl (Dilaudid) 0.5 mg IVP Q3H PRN PRN Reason: Pain, severe (8-10) Last Admin: 12/22/17 05:57 Dose: 0.5 mg Hydromorphone HCl (Dilaudid) 0.5 mg IVP ONCE PRN PRN Reason: Pain, severe (8-10) Last Admin: 12/22/17 09:25 Dose: 0.5 mg Potassium Chloride/Sodium Chloride (Potassium Chl 20 Meq In Ns) 1,000 mls @ 150 mls/hr IV .Q6H40M GEO Stop: 12/22/17 19:09 Last Admin: 12/22/17 07:56 Dose: 150 mls/hr Iohexol (Omnipaque 240 (50 Ml)) 50 ml PO ONCE ONE Stop: 12/22/17 11:13 Ketorolac Tromethamine (Toradol) 30 mg IVP Q6 GEO Stop: 12/27/17 10:01 Last Admin: 12/22/17 10:23 Dose: 30 mg Labetalol HCl (Trandate) 20 mg IVP Q6H PRN PRN Reason: Other Ondansetron HCl (Zofran Inj) 4 mg IVP Q4 PRN PRN Reason: Nausea/Vomiting Last Admin: 12/22/17 02:50 Dose: 4 mg Pantoprazole Sodium (Protonix Inj) 40 mg IVP DAILY GEO Last Admin: 12/22/17 09:30 Dose: 40 mg - Labs Labs: 12/21/17 06:00 12/20/17 11:00 PT 10.4 Seconds (9.8-13.1) 12/20/17 11:00 INR 0.9 (0.9-1.2) 12/20/17 11:00 APTT 27.3 Seconds (25.6-37.1) 12/20/17 11:00 - Constitutional Appears: Non-toxic, No Acute Distress - Head Exam Head Exam: NORMAL INSPECTION - Eye Exam Eye Exam: Normal appearance - ENT Exam ENT Exam: Mucous Membranes Moist - Respiratory Exam Respiratory Exam: NORMAL BREATHING PATTERN. absent: Accessory Muscle Use, Respiratory Distress - Cardiovascular Exam Cardiovascular Exam: REGULAR RHYTHM. absent: Bradycardia, Tachycardia - GI/Abdominal Exam GI & Abdominal Exam: Distended, Soft, Tenderness (mild TTP duffusely). absent: Firm, Guarding, Rigid, Rebound Additional comments: suprapubic incision c/d/i - Extremities Exam Extremities Exam: Normal Inspection - Neurological Exam Neurological Exam: Alert, Awake, Oriented x3 - Psychiatric Exam Psychiatric exam: Normal Affect, Normal Mood - Skin Skin Exam: Dry, Intact, Normal Color, Warm Assessment and Plan - Assessment and Plan (Free Text) Assessment: 32 y/o F POD#3 s/p , now w/ post-op ileus - NPO/IVF - d/c NGT - cont pain management --> recommend non-narcotics - CT A/P w/ PO & IV contrast - enema PRN - monitor bowel fxn - encourage OOB to chair/Amb/IS use Pt discussed w/ Dr. Denis Juares DO PGY3
--- NOTE | 2017-12-22 11:32 | RAD ---
Date of service: 12/22/2017 HISTORY: NGT position COMPARISON: 12/21/2017. FINDINGS: LUNGS: The lungs are well inflated and clear. PLEURA: No significant pleural effusion identified, no pneumothorax apparent. CARDIOVASCULAR: Normal. OSSEOUS STRUCTURES: No significant abnormalities. VISUALIZED UPPER ABDOMEN: Normal. OTHER FINDINGS: The nasogastric tube terminates in the stomach. IMPRESSION: The nasogastric tube terminates in the stomach. No active pulmonary disease.
[2017-12-22] MEDS ORDERED: Iohexol 240 (50 ml) PO ONE (12:00)
[2017-12-22] MEDS ORDERED: Iodixanol 320 MG/ML 100 ML BOTTLE IV ONE (14:03)
[2017-12-22] MEDS ORDERED: Sodium Chloride 0.9% 50 ML IV ONE (14:03)
[2017-12-22] MEDS ORDERED: Iohexol 300 100 ML IJ ONE (14:37)
--- NOTE | 2017-12-22 16:36 | CT ---
Date of service: 12/22/2017 PROCEDURE: CT Abdomen and Pelvis with contrast HISTORY: SBO v ileus COMPARISON: Plain radiographs from 12/21/2017. TECHNIQUE: CT scan of the abdomen and pelvis was performed after administration of intravenous contrast. Oral contrast was administered. Coronal and sagittal reformatted images were obtained. Contrast dose: 95 cc Omnipaque 300 Radiation dose: Total exam DLP = 891.57 mGy-cm. This CT exam was performed using one or more of the following dose reduction techniques: Automated exposure control, adjustment of the mA and/or kV according to patient size, and/or use of iterative reconstruction technique. FINDINGS: LOWER THORAX: There is subsegmental atelectasis in the right lower lobe. The visualized left lung is clear. LIVER: Mild hepatomegaly and diffuse fatty liver. No gross lesion or ductal dilatation. GALLBLADDER AND BILE DUCTS: No calcified gallstones. PANCREAS: Normal in size with homogeneous enhancement. No gross lesion or ductal dilatation. SPLEEN: Normal in size and appearance. ADRENALS: No discrete nodule. KIDNEYS AND URETERS: Normal in size with homogeneous enhancement. No hydronephrosis. No solid mass. VASCULATURE: No aortic aneurysm. BOWEL: The small bowel loops are normal in caliber. There is fluid in the ascending and transverse colon. The left hemicolon is decompressed. No bowel obstruction. APPENDIX: Normal appendix. PERITONEUM: There is small amount of free fluid in the right lower quadrant and tiny foci of air in the right lower quadrant likely related to recent surgery. LYMPH NODES: No enlarged lymph nodes. BLADDER: Partially distended. There is a small focus of air in the anterior superior urinary bladder likely related to recent catheterization. REPRODUCTIVE: The uterus is bulky and retroverted. BONES: No acute fracture. Within normal limits for the patient's age. OTHER FINDINGS: There are postsurgical changes in the midline anterior pelvic wall with skin allie in the anterior wall. There is subcutaneous fat stranding and small foci of air in the lower pelvic wall related to recent surgery. No drainable fluid collection. IMPRESSION: 1. Fluid in the ascending and transverse colon is nonspecific and may be related to ileus. The left hemicolon is decompressed. No evidence for bowel obstruction. 2. Postsurgical changes in the lower anterior pelvic wall. No drainable fluid collection. Small amount of fluid and air in the right lower quadrant in keeping postoperative findings. 3. Mild hepatomegaly and fatty liver.
--- NOTE | 2017-12-23 07:31 | CP.PCM.PN ---
Subjective - Date & Time of Evaluation Date of Evaluation: 12/23/17 Time of Evaluation: 07:30 - Subjective Subjective: General surgery progress note for Dr. Valentina Prince, PGY-2 Pt S & E at bedside at 0700 Pt reports bowel function yesterday- BM & flatus. Abdominal pain resolved, now only with pain at her site. Tolerating diet. Denies N & V, other complaints. Objective - Vital Signs/Intake and Output Vital Signs (last 24 hours): Temp Pulse Resp BP Pulse Ox 98.9 F 103 H 18 134/88 12/20/17 17:17 12/20/17 17:17 12/20/17 17:17 12/20/17 17:17 - Medications Medications: Current Medications Acetaminophen (Tylenol 325mg Tab) 650 mg PO Q4 PRN PRN Reason: Pain, moderate (4-7) Benzocaine/Menthol (Cepacol Sore Throat) 1 lilian PO Q2 PRN PRN Reason: Sore Throat Hydromorphone HCl (Dilaudid) 0.5 mg IVP ONCE PRN PRN Reason: Pain, severe (8-10) Last Admin: 12/22/17 09:25 Dose: 0.5 mg Ketorolac Tromethamine (Toradol) 30 mg IVP Q6 GEO Stop: 12/27/17 10:01 Last Admin: 12/23/17 04:34 Dose: Not Given Labetalol HCl (Trandate) 200 mg PO BID PRN PRN Reason: Systolic Blood Pressure Ondansetron HCl (Zofran Inj) 4 mg IVP Q4 PRN PRN Reason: Nausea/Vomiting Last Admin: 12/22/17 02:50 Dose: 4 mg Pantoprazole Sodium (Protonix Ec Tab) 20 mg PO DAILY GEO - Labs Labs: 12/21/17 06:00 12/20/17 11:00 PT 10.4 Seconds (9.8-13.1) 12/20/17 11:00 INR 0.9 (0.9-1.2) 12/20/17 11:00 APTT 27.3 Seconds (25.6-37.1) 12/20/17 11:00 - Constitutional Appears: Non-toxic, No Acute Distress - Head Exam Head Exam: ATRAUMATIC, NORMAL INSPECTION, NORMOCEPHALIC - Eye Exam Eye Exam: EOMI, Normal appearance - ENT Exam ENT Exam: Mucous Membranes Moist, Normal Exam - Neck Exam Neck Exam: Full ROM, Normal Inspection - Respiratory Exam Respiratory Exam: NORMAL BREATHING PATTERN - Cardiovascular Exam Cardiovascular Exam: REGULAR RHYTHM, +S1, +S2 - GI/Abdominal Exam GI & Abdominal Exam: Soft. absent: Distended, Firm, Guarding, Tenderness, Rebound - Extremities Exam Extremities Exam: Normal Inspection - Neurological Exam Neurological Exam: Alert, Awake, CN II-XII Intact, Oriented x3 - Psychiatric Exam Psychiatric exam: Normal Affect, Normal Mood - Skin Skin Exam: Dry, Intact, Normal Color, Warm Additional comments: pfannistel incision with allie in place Assessment and Plan - Assessment and Plan (Free Text) Assessment: 32F POD#4 s/p with post op ileus- resolved Plan: CT abdomen without obstruction Continue diet OOBTC Ambulate Encourage IS use OK to change to PO meds No surgical intervention at this time Thank you for this consult Please re-consult as needed Will JOSE attending Niki, PGY-2
[2017-12-23] MEDS ORDERED: Pantoprazole 20 mg EC Tab PO SCH (09:00)
[2017-12-23 18:19] VITALS: BP 115/70; PULSE 91; TEMP 98.6; O2SAT 98
--- NOTE | 2017-12-24 09:06 | OP ---
PROCEDURE DATE: 12/19/2017 PREOPERATIVE DIAGNOSES: Intrauterine at 39 weeks' gestation, previous section x1, elevated blood pressure, preeclampsia. POSTOPERATIVE DIAGNOSES: 1. Intrauterine at 39 weeks' gestation, previous section x1, elevated blood pressure, and preeclampsia. 2. Suprapelvic adhesions. 3. Uterine atony. 4. Fibroid uterus. PROCEDURES PERFORMED: Repeat section via vertical uterine incision and lysis of pelvic adhesions. SURGEON: Angelo Johnson DO HISTORY INSTRUCTOR: James Patton MD; Dilip Mckee MD; Es Prince DO, PGY-2 ANESTHESIA ADMINISTERED BY: Mark Zhang MD TYPE OF ANESTHESIA: Spinal and general. OPERATIVE FINDINGS: Suprapelvic adhesions; fibroid uterus; inability to visualize the bladder secondary to the adhesions; live infant delivered from a cephalic presentation; clear amniotic fluid; placenta delivered intact manually; uterine atony (given Hemabate IM as well as intrauterine and Cytotec rectally postoperatively, Gelfoam and Surgicel placed intraabdominally). ESTIMATED BLOOD LOSS: 1200 mL. CONDITION: She remained hemodynamically stable throughout the procedure and she was given general anesthesia secondary to the pain during the later half of the procedure. Equipments, sponges, and needles accounted for. DESCRIPTION OF PROCEDURE: Charlie was brought to the operating room. Compression boots were placed on both lower extremities. After successful spinal anesthesia, she was placed in a supine position. Catheter was placed in the urethra and into the bladder and noted to be draining clear urine. She was then draped and prepped in the usual sterile manner. Once adequate anesthesia was obtained, previous surgical scar was removed using a scalpel. This incision was then taken down to underlying fascia using electrocautery. Fascia was nicked in the midline and extended bilaterally using electrocautery in the midline superiorly. The rectus muscle was crossed using two Talia clamps, tented up and this was incised using a scalpel. Upon identifying the peritoneum, this was grasped using two Nguyen clamps, tented up and incised using Metzenbaum scissors. Incision was then extended superiorly with direct visualization of the intestine and then once looking inferiorly, there were pelvic adhesions noted. The omentum was attached to the anterior abdominal wall from the incision site down toward the bladder. Careful dissection was done of the omentum on the right side using Nguyen clamps x2 and this was clamped off, cut and both sides doubly ligated using 0 Vicryl suture with hemostasis being assured. Because of the extensive adhesions, there was difficulty to identify the bladder. Careful dissection of the rectus muscle was performed inferiorly and thereafter, the bladder blade was then inserted. Because the adhesions were still present and attaching the right side of the uterus to the anterior abdominal wall and no lower uterine segment noted, decision was made to perform a vertical incision on the uterus using a scalpel. Carefully, the uterus was then incised using a scalpel. Incision was then extended superiorly and inferiorly with bandage scissors. Rupture of membrane was performed using forceps with teeth. Clear amniotic fluid was noted. 's head was delivered as atraumatically as possible and was bulb suctioned nasopharyngeally. The remainder of the infant was then delivered as atraumatically as possible. Cord was clamped and cut. Infant was crying spontaneously and handed to the cotton dispatcher in attendance. Cord bloods were sent. Placenta was delivered intact manually. The uterus was carefully exteriorized. Uterus was cleared of debris and clots. Some uterine atony was noted. IV Pitocin given. A 0 Vicryl suture was then used to close the first layer of the uterus in an interlocking fashion. Second layer of the uterus was closed using 0 Vicryl suture as well. Again, uterine atony was noted through the procedure. At this stage, Hemabate IM was given. Incision site was noted to have some bleeding. Hemostasis was assured using 0 Vicryl suture in a [id number] fashion on the superior aspect of the uterine incision and Dr. Mckee was called in for reinspection. There was an area noted around the fibroids that was bleeding. A 2-0 Vicryl suture was used to approximate the area. At this point, Gelfoam and Surgicel were placed. Hemabate intramuscular was also given. Posterior cul-de-sac was noted to be clear of debris and clots. Uterus was placed back into the peritoneal cavity once hemostasis was assured. Uterine incision and areas of the fibroids were reinspected and noted to have good hemostasis. Gelfoam and Surgicel also in place. All equipment was removed and accounted for. A 0 Vicryl suture was used to approximate the rectus muscle x3. A 0 Vicryl suture was used to approximate the fascial layer in a running fashion. Irrigation was performed. Hemostasis was assured at each level. A 2-0 plain suture was then placed subcuticularly and skin allie were then placed. All equipments were removed and accounted for. Charlie was brought to the recovery room in stable condition. All equipment, sponges, and needles accounted for. Angelo Johnson DO
== END 2017-12-23 13:00 | disposition home or self-care (01) | DRG 765 ==
LOC: H.EROB2 15:13 → H.L&D 16:53 → H.OB/GYN 12-20 20:25
PROVIDERS: ADMIT Obstetrics & Gynecology; ATTEND Obstetrics & Gynecology
PROC: 10D00Z1 Extraction of Products of Conception, Low, Open Approach (ICD-10-PCS; principal; 2017-12-19)
PROC: 0DNW0ZZ Release Peritoneum, Open Approach (ICD-10-PCS; 2017-12-19)
PROC: 0D9670Z Drainage of Stomach with Drainage Device, Via Natural or Artificial Opening (ICD-10-PCS; 2017-12-22)
DX: O13.4 Gestational [pregnancy-induced] hypertension without significant proteinuria, complicating childbirth (principal); E87.1 Hypo-osmolality and hyponatremia; K56.7 Ileus, unspecified; K91.89 Other postprocedural complications and disorders of digestive system; O99.285 Endocrine, nutritional and metabolic diseases complicating the puerperium; O99.63 Diseases of the digestive system complicating the puerperium; O34.211 Maternal care for low transverse scar from previous cesarean delivery; O62.2 Other uterine inertia; Z37.0 Single live birth; O99.89 Other specified diseases and conditions complicating pregnancy, childbirth and the puerperium; N73.6 Female pelvic peritoneal adhesions (postinfective); O34.13 Maternal care for benign tumor of corpus uteri, third trimester; D25.9 Leiomyoma of uterus, unspecified; O36.8130 Decreased fetal movements, third trimester, not applicable or unspecified; M41.9 Scoliosis, unspecified; Z3A.39 39 weeks gestation of pregnancy; Z87.891 Personal history of nicotine dependence